=== PATIENT | female | born 1945 | race Caucasian/White ===

== ENCOUNTER 2016-10-18 10:40 | Outpatient (CLI) | payer MEDICARE ==
[2016-10-18 11:29] LABS: #Eosinphils 0.2 thou/uL (0.0-0.7); #Lymphocytes 2.9 thou/uL (1.20-3.40); #Monocytes 0.4 thou/uL (0.11-0.59); #Neutrophils 3.7 thou/uL (1.40-6.50); %Basophils 0.5 % (0.0-1.0); %Eosinophils 2.7 % (0.0-10.0); %Lymphocytes 40.3 % (21.0-51.0); %Monocytes 5.8 % (0.0-10.0); Hematocrit 37.8 % (36.0-47.0); Mean Platelet Volume 5.4 fL (7.4-10.4); Red Blood Cell (RBC) Count 4.37 mill/uL (4.20-5.40); White Blood Cell (WBC) Count 7.3 thou/uL (4.8-10.8)
[2016-10-18 11:48] LABS: ALT (SGPT) 13 U/L (0-55); AST (SGOT) 15 U/L (5-34); Alkaline Phosphatase 75 U/L (40-150); Anion Gap 16 mmol/L (10-20); BUN (Urea Nitrogen) 21 mg/dL (9.8-20.1); Bilirubin, Total 0.6 mg/dL (0.2-1.2); Calc. Creatinine Clearance 0 mL/min (70-130); Calcium 9.8 mg/dL (7.8-10.44); Carbon Dioxide 21 mmol/L (23-31); Chloride 105 mmol/L (98-107); Estimated GFR-MDRD 39; Globulin 3.2 g/dL (2.4-3.5); Protein, Total 7.5 g/dL (5.8-8.1)
[2016-10-18 12:15] LABS: Troponin I Less than 0.010 ng/mL (< 0.028)
== END 2016-10-18 10:41 | disposition home or self-care (01) ==
LOC: NAV LAB 10:40
PROVIDERS: ATTEND Family Medicine
DX: R53.83 Other fatigue (principal); R06.83 Snoring
CPT/HCPCS: 36415; 80053; 82306; 82607; 82728; 83880; 84443; 84484; 85025; 85379; 85652; 86038; 86430

== ENCOUNTER 2016-12-04 20:49 | Emergency (ER) | payer MEDICARE ==
[2016-12-04 21:25] LABS: #Basophils 0.1 thou/uL (0.0-0.2); #Eosinphils 0.1 thou/uL (0.0-0.7); #Lymphocytes 2.5 thou/uL (1.20-3.40); #Monocytes 0.3 thou/uL (0.11-0.59); #Neutrophils 3.2 thou/uL (1.40-6.50); %Basophils 1.4 % (0.0-1.0); %Eosinophils 2.4 % (0.0-10.0); %Lymphocytes 40.3 % (21.0-51.0); %Monocytes 5.3 % (0.0-10.0); Hematocrit 35.5 % (36.0-47.0); Mean Platelet Volume 6.3 fL (7.4-10.4); Red Blood Cell (RBC) Count 4.19 mill/uL (4.20-5.40); White Blood Cell (WBC) Count 6.2 thou/uL (4.8-10.8)
[2016-12-04 21:53] LABS: ALT (SGPT) 16 U/L (0-55); AST (SGOT) 17 U/L (5-34); Alkaline Phosphatase 73 U/L (40-150); Anion Gap 18 mmol/L (10-20); BUN (Urea Nitrogen) 26 mg/dL (9.8-20.1); Bilirubin, Total 0.6 mg/dL (0.2-1.2); Calc. Creatinine Clearance 0 mL/min (70-130); Calcium 10.3 mg/dL (7.8-10.44); Carbon Dioxide 23 mmol/L (23-31); Chloride 105 mmol/L (98-107); Estimated GFR-MDRD 41; Globulin 2.8 g/dL (2.4-3.5); Protein, Total 7.4 g/dL (5.8-8.1)
[2016-12-04 21:54] LABS: Troponin I Less than 0.010 ng/mL (< 0.028)
[2016-12-04] MEDS ORDERED: Sodium Chloride 0.9% 1,000 ML ONE (22:00)
--- NOTE | 2016-12-04 22:12 | CT ---
EXAM: NONCONTRAST HEAD CT 12/04/16 HISTORY: Stroke alert. Dizziness and hypertension. Mild right facial droop and right arm numbness. COMPARISON: None. TECHNIQUE: Noncontrast head CT is performed from skull base to skull vertex. FINDINGS: No parenchymal hemorrhage. No extra-axial hematoma. No midline shift. Basilar cisterns are patent. Brain volume, age appropriate. Cortical guajardo-white matter differentiation is preserved. Ventricles and sulci are patent and symmetric. Adequate aeration of the mastoid air cells. Left sphe noid sinus disease. Intact calvarium. IMPRESSION: 1. No acute intracranial process. 2. Results of the study discussed with Dr. Glaser, 12/04/16 at 9:14 p.m. Code CR POS: [facility]
[2016-12-04 22:36] LABS: Bilirubin Negative (Negative); Blood, Urine Negative (Negative); Glucose, Urine (Dipstick) Negative (Negative); Ketone, Urine Negative (Negative); Nitrite Negative (Negative); Protein, Urine (Dipstick) Negative (Neg-Trace); Urobilinogen 0.2 mg/dL (0.2-1.0)
[2016-12-04 22:44] LABS: RBC/HPF None Seen HPF (0-3); WBC/HPF 0-3 HPF (0-3)
[2016-12-04 22:45] LABS: Bacteria/HPF None Seen HPF (None Seen); Squamous Epithelial 0-3 HPF (0-3)
--- NOTE | 2016-12-05 07:55 | CT ---
EXAM: CT ANGIOGRAM OF THE [place] CT ANGIOGRAM OF THE NECK 12/04/16 HISTORY: Stroke-like symptoms. Facial numbness and upper extremity weakness. COMPARISON: None. TECHNIQUE: CT angiogram of the [place] and cervical carotid and vertebral arteries performed in the ax ial plane. Sagittal and coronal three dimensional maximum intensity projection images are submitted for interpretation. FINDINGS: The visualized brain parenchyma is unremarkable. Cortical guajardo-white matter differentiation appears to be preserved. Limited evaluation for subarachnoid hemorrhage due to the presence of intra-arteria l contrast. . Incidental left sphenoid sinus disease is noted. The visualized globes are intact. Evaluation of the oral cavity is limited by dental amalgam artifact. Midline fatty raphae of the ton tang appears to be preserved. Epiglottis has a normal caliber. Pre-epiglottic fat is preserved. No pr evertebral soft tissue swelling. Symmetric attenuation of the parotid glands and submandibular. Thyroid gland is unremarkable. No evidence of lymphadenopathy by size criteria. Symmetric attenuation of the sternocleidomastoid mu scles. Cervical vertebral body height is maintained. There is no fracture. There is anterolisthesis of C4 upon C5 and C5 upon C6, likely on the basis of degenerative change. Limited evaluation of the contents of the central spinal canal and neural foramina are due to technique. Upper mediastinum is unremarkable. Nonspecific ground glass opacities in the visualized lung apices. CT ANGIOGRAM OF THE NECK: There is appropriate enhancement and luminal diameter of the visualized aortic arch. RIGHT CAROTID: The innominate artery origin has appropriate enhancement and luminal diameter. The right common islas tid artery, carotid bifurcation and internal carotid artery have appropriate enhancement and luminal diameter. LEFT CAROTID: There is appropriate enhancement and luminal diameter of the carotid artery origin. The common carot id artery, carotid bifurcation, and internal carotid artery have appropriate enhancement and luminal diameter. Both vertebral artery origins are unremarkable. Vertebral arteries are essentially codominant and pa tent throughout their course in the neck. The visualized subclavian arteries are unremarkable. CT ANGIOGRAM OF THE [place]: Limited evaluation of the intracranial arteries due to poor contrast opacification secondary to bolu s. The intracranial internal carotid arteries appear to be grossly symmetric. Anterior circulation is slightly limited in evaluation due to suboptimal contrast opacification. No gross filling defects. There appears to be symmetric caliber of the A1 and M1 segments. Proximal A2 segments and MCA branches are grossly unremarkable. Posterior circulation demonstrates codominant vertebral arteries. Neither PICA artery origin is adeq uately assessed. Basilar artery is patent. Both P1 segments are grossly unremarkable IMPRESSION: 1. No significant stenosis or the carotid arteries, based on NASCET criteria. 2. Suboptimal evaluation of the [place]. No gross filling defect is appreciated. POS: [facility]
== END 2016-12-04 23:49 | disposition short-term general hospital (02) ==
LOC: NAV ERS 20:49
DX: R42 Dizziness and giddiness (principal); R20.0 Anesthesia of skin; R25.1 Tremor, unspecified; J45.909 Unspecified asthma, uncomplicated; Z79.899 Other long term (current) drug therapy
CPT/HCPCS: 36416; 70450; 70496; 70498; 80053; 81003; 81015; 82553; 84484; 85025; 93005; 96360; J7050

== ENCOUNTER 2017-02-26 13:23 | Outpatient (CLI) | payer MEDICARE ==
--- NOTE | 2017-02-26 14:05 | RAD ---
LUMBAR SPINE THREE VIEWS: History: 71-year-old female with back pain. FINDINGS: Post op laminectomy and pedicle screw placement changes noted at L4, L3 and L2 with extensive disc o steophytosis and disc space narrowing including the L1-2 disc. Prominent levoscoliosis. Post op righ t total hip replacement. IMPRESSION: Levoscoliosis. Pedicle screw placement changes at L2, L3, and L4 with narrowing of L1-2 and disc ost eophytosis. POS: [facility]
== END 2017-02-26 13:24 | disposition home or self-care (01) ==
LOC: NAV RAD 13:23
PROVIDERS: ATTEND Family Medicine
DX: M54.9 Dorsalgia, unspecified (principal); M41.86 Other forms of scoliosis, lumbar region; M48.06 Spinal stenosis, lumbar region; M25.78 Osteophyte, vertebrae
CPT/HCPCS: 72100

== ENCOUNTER 2017-10-01 10:42 | Outpatient (CLI) | payer MEDICARE ==
--- NOTE | 2017-10-01 11:35 | RAD ---
PA AND LATERAL CHEST: History: Cough. FINDINGS: Comparison is made with exam of 12-05-16. The heart size is normal. The lungs are expanded without focal areas of consolidation, pneumothorax, or pleural effusions. There are mild degenerative changes of the spine. IMPRESSION: No radiographic evidence of acute cardiopulmonary process. POS: [facility]
== END 2017-10-01 10:43 | disposition home or self-care (01) ==
LOC: NAV RAD 10:42
PROVIDERS: ATTEND Family Medicine
DX: R05 Cough (principal)
CPT/HCPCS: 71046

== ENCOUNTER 2018-08-04 15:20 | Outpatient (CLI) | payer MEDICARE ==
--- NOTE | 2018-08-04 17:07 | RAD ---
3 VIEWS RIGHT WRIST: Date: 08/04/18 COMPARISON: 07/26/18. HISTORY: Right wrist pain. FINDINGS: Three views of the right wrist show no evidence of acute fracture or dislocation. There is mild joint space narrowing of the radiocarpal joint. No focal soft tissue swelling is seen. Degenerative change s are seen in the first CMC joint. IMPRESSION: No evidence of acute osseous abnormality. POS: [facility]
== END 2018-08-04 15:21 | disposition home or self-care (01) ==
LOC: NAV RAD 15:20
PROVIDERS: ATTEND Family Medicine
DX: M25.531 Pain in right wrist (principal)

== ENCOUNTER 2018-10-08 14:12 | Outpatient (CLI) | payer MEDICARE ==
--- NOTE | 2018-10-08 14:58 | RAD ---
LEFT HIP THREE VIEWS: History: Hip pain. Comparison: 08-28-16 FINDINGS: Femoral head is normally maintained. There is mild degenerative spurring from the femoral head and mi ld spurring from the acetabulum. No fracture or acute abnormality. No significant change from prior e xam. IMPRESSION: Mild degenerative change left hip again noted. POS: [facility]
--- NOTE | 2018-10-08 15:24 | RAD ---
RIGHT HIP 2 VIEWS: HISTORY: Hip pain. FINDINGS: Right hip prosthesis is noted. The components appear in adequate position and alignment. No evidenc e of loosening. No fracture or acute abnormality. Small loose bodies adjacent to the proximal femur and hypertrophic changes from the proximal femur are noted, probably postop. No fracture or acute a bnormality. IMPRESSION: Right hip prosthesis is adequately aligned with no evidence for loosening. Hypertrophic changes as d escribed. POS: [facility]
== END 2018-10-08 14:13 | disposition home or self-care (01) ==
LOC: NAV RAD 14:12
PROVIDERS: ATTEND Family Medicine
DX: M25.552 Pain in left hip (principal); M25.551 Pain in right hip; M16.12 Unilateral primary osteoarthritis, left hip; Z96.641 Presence of right artificial hip joint

== ENCOUNTER 2019-02-11 15:13 | Outpatient (CLI) | payer MEDICARE ==
--- NOTE | 2019-02-11 15:46 | RAD ---
EXAM: Left knee 4 views: HISTORY: Left knee pain COMPARISON: None FINDINGS: Evidence for some increased density in the suprapatellar recess evidence for significant joint effusi on. Degenerative changes. No acute fracture or dislocation or other significant acute osseous abnormality. IMPRESSION: No significant acute process.
--- NOTE | 2019-02-11 15:51 | RAD ---
LUMBAR SPINE 3 VIEWS: History Low back pain. FINDINGS/IMPRESSION: There are multilevel degenerative changes seen with levoscoliosis of the lumbar spine. There are pos top changes of posterior spinal fusion with bilateral pedicle screws at L2, L3, and L4 levels in good position and alignment. No acute fracture or subluxation or bony destruction is seen. No hardware loosening is identified. There postop changes of right hip arthroplasty. POS: [facility]
--- NOTE | 2019-02-11 15:52 | RAD ---
EXAM: 3 views of the thoracic spine HISTORY: Thoracic spine pain COMPARISON: None FINDINGS: 3 views of the thoracic spine shows normal height and alignment of the vertebral bodies and intervertebral discs without fracture or subluxation. Small osteophytes are seen throughout the thoracic spine. Hardware is seen in the lumbar spine. 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
== END 2019-02-11 15:14 | disposition home or self-care (01) ==
LOC: NAV RAD 15:13
PROVIDERS: ATTEND Family Medicine
DX: M25.562 Pain in left knee (principal); M54.9 Dorsalgia, unspecified; M47.814 Spondylosis without myelopathy or radiculopathy, thoracic region; M47.816 Spondylosis without myelopathy or radiculopathy, lumbar region; M41.9 Scoliosis, unspecified; Z98.1 Arthrodesis status; Z96.641 Presence of right artificial hip joint
CPT/HCPCS: 72072; 72110

== ENCOUNTER 2019-07-08 19:05 | Emergency (ER) | payer MEDICARE ==
[2019-07-08] MEDS ORDERED: Acetaminophen 325 MG TAB ONE (19:27)
--- NOTE | 2019-07-08 20:02 | RAD ---
XR Chest Pa Lat STANDARD History: Fever Comparison: Radiograph 2018 Findings: Small sliding hiatal hernia. Mild atelectasis left lung base. No pneumothorax. No effusion. No confluent airspace consolidation. Incomplete evaluation of lumbar spine fixation hardware. Impression: Small sliding hiatal hernia as well as left basilar atelectasis.
[2019-07-08] MEDS ORDERED: Sodium Chloride 0.9% 1,000 ML ONE (20:14)
[2019-07-08 20:49] LABS: Anion Gap 17 mmol/L (10-20); BUN (Urea Nitrogen) 20 mg/dL (9.8-20.1); Calc. Creatinine Clearance 0 mL/min (70-130); Calcium 10.1 mg/dL (7.8-10.44); Carbon Dioxide 26 mmol/L (23-31); Chloride 98 mmol/L (98-107); Estimated GFR-MDRD 36; Glucose 115 mg/dL (83-110); Potassium 4.1 mmol/L (3.5-5.1); Sodium 137 mmol/L (136-145)
[2019-07-08 21:02] LABS: #Lymphocytes 1.2 thou/uL (1.20-3.40); #Monocytes 0.4 thou/uL (0.11-0.59); #Neutrophils 2.4 thou/uL (1.40-6.50); %Basophils 0.5 % (0.0-1.0); %Eosinophils 0.6 % (0.0-10.0); %Lymphocytes 28.4 % (21.0-51.0); %Monocytes 10.7 % (0.0-10.0); %Neutrophils 59.9 % (42.0-75.0); Mean Corpuscular HGB CONC 32.8 g/dL (32.0-36.0); Mean Corpuscular Hemoglobin 28.9 pg (27.0-31.0); Mean Platelet Volume 5.5 fL (7.4-10.4); Platelet Count 184 thou/uL (130-400); RBC Distribution Width 12.3 % (11.5-14.5); Red Blood Cell (RBC) Count 3.48 mill/uL (4.20-5.40)
[2019-07-08 21:25] LABS: Bilirubin Negative (Negative); Blood, Urine Negative (Negative); Clarity Clear (Clear); Glucose, Urine (Dipstick) Negative (Negative); Leukocyte Small (Negative); Nitrite Negative (Negative); Protein, Urine (Dipstick) Negative (Neg-Trace); Urobilinogen 0.2 mg/dL (Less than 2)
[2019-07-08 21:50] LABS: Bacteria/HPF 2+ HPF (None Seen); Renal Epithelial 0-3 HPF (None Seen); Squamous Epithelial 0-3 HPF (0-3); WBC/HPF 0-3 HPF (0-3)
== END 2019-07-08 21:55 | disposition home or self-care (01) ==
LOC: NAV ERS 19:05
DX: B34.9 Viral infection, unspecified (principal); D64.9 Anemia, unspecified; J45.909 Unspecified asthma, uncomplicated; Z79.899 Other long term (current) drug therapy
CPT/HCPCS: 71046; 80048; 81003; 81015; 83605; 85025; 87077; 87086; 87186; 87804; 96360; J7050

== ENCOUNTER 2019-10-18 16:58 | Emergency (ER) | payer MEDICARE | END 2019-10-18 17:45 | disposition home or self-care (01) | LOC: NAV ERS 16:58 | DX: S43.401A Unspecified sprain of right shoulder joint, initial encounter (principal); J45.909 Unspecified asthma, uncomplicated; Z86.711 Personal history of pulmonary embolism; Z79.899 Other long term (current) drug therapy; X50.1XXA Overexertion from prolonged static or awkward postures, initial encounter | CPT/HCPCS: 99283 ==

== ENCOUNTER 2019-11-29 15:39 | Outpatient (CLI) | payer MEDICARE ==
--- NOTE | 2019-11-29 17:04 | RAD ---
EXAM: Right knee 4 views: HISTORY: Acute right knee pain following injury from a fall COMPARISON: None FINDINGS: Minimal increased density in the suprapatellar recess, possible minimal joint effusion. Degenerative changes. No acute fracture or dislocation or other significant acute osseous abnormality. IMPRESSION: No significant acute process.
== END 2019-11-29 15:40 | disposition home or self-care (01) ==
LOC: NAV RAD 15:39
PROVIDERS: ATTEND Family Medicine
DX: M25.561 Pain in right knee (principal)

== ENCOUNTER 2020-02-03 17:37 | Emergency (ER) | payer MEDICARE ==
[2020-02-03 18:17] LABS: #Basophils 0.1 thou/uL (0.0-0.2); #Eosinphils 0.2 thou/uL (0.0-0.7); #Lymphocytes 2.6 thou/uL (1.20-3.40); #Monocytes 0.5 thou/uL (0.11-0.59); #Neutrophils 3.3 thou/uL (1.40-6.50); %Eosinophils 2.8 % (0.0-10.0); %Lymphocytes 38.6 % (21.0-51.0); %Monocytes 7.7 % (0.0-10.0); Hemoglobin 11.8 g/dL (12.0-16.0); Mean Corpuscular Hemoglobin 30.4 pg (27.0-31.0); Mean Corpuscular Volume 92.1 fL (78.0-98.0); Mean Platelet Volume 5.9 fL (7.4-10.4); Platelet Count 252 thou/uL (130-400); RBC Distribution Width 13.3 % (11.5-14.5); Red Blood Cell (RBC) Count 3.89 mill/uL (4.20-5.40); White Blood Cell (WBC) Count 6.6 thou/uL (4.8-10.8)
[2020-02-03 18:32] LABS: ALT (SGPT) 21 U/L (8-55); AST (SGOT) 18 U/L (5-34); Alkaline Phosphatase 69 U/L (40-110); Anion Gap 15 mmol/L (10-20); BUN (Urea Nitrogen) 17 mg/dL (9.8-20.1); Bilirubin, Total 0.4 mg/dL (0.2-1.2); Calc. Creatinine Clearance 0 mL/min (70-130); Calcium 9.2 mg/dL (7.8-10.44); Carbon Dioxide 19 mmol/L (23-31); Chloride 109 mmol/L (98-107); Estimated GFR-MDRD 51; Globulin 2.9 g/dL (2.4-3.5); Glucose 101 mg/dL (83-110); Potassium 4.3 mmol/L (3.5-5.1); Protein, Total 6.9 g/dL (6.0-8.3); Sodium 139 mmol/L (136-145)
[2020-02-03] MEDS ORDERED: Aspirin Chewable 81 MG TAB ONE (18:32)
--- NOTE | 2020-02-03 18:32 | RAD ---
RADIOGRAPH CHEST 1 VIEW: 02/03/20 HISTORY: 74-year-old female with chest pain. FINDINGS: There are no air space densities, pulmonary edema, pneumothorax, or cardiomegaly. The lateral costop hrenic angles are sharp. IMPRESSION: No acute cardiopulmonary findings. gonzales [] POS: [facility]
== END 2020-02-03 19:56 | disposition home or self-care (01) ==
LOC: NAV ERS 17:37
DX: R07.89 Other chest pain (principal); N18.3 Chronic kidney disease, stage 3 (moderate); J45.909 Unspecified asthma, uncomplicated; Z79.899 Other long term (current) drug therapy; Z86.711 Personal history of pulmonary embolism
CPT/HCPCS: 71045; 80053; 83880; 84484; 85025; 93005

== ENCOUNTER 2020-07-27 11:49 | Outpatient (CLI) | payer MEDICARE ==
--- NOTE | 2020-07-28 07:10 | RAD ---
XR Chest Pa Lat STANDARD HISTORY: Acute bronchitis COMPARISON: 02/13/2020, 07/08/2019 FINDINGS: The heart size is normal. The lungs are well expanded without focal areas of consolidation, pneumothorax or pleural effusions. IMPRESSION: No radiographic evidence of acute cardiopulmonary process.
== END 2020-07-27 11:50 | disposition home or self-care (01) ==
LOC: NAV RAD 11:49
PROVIDERS: ATTEND Family Medicine
DX: J20.9 Acute bronchitis, unspecified (principal)
CPT/HCPCS: 71046

== ENCOUNTER 2020-10-15 14:45 | Emergency (ER) | payer MEDICARE ==
[2020-10-15] MEDS ORDERED: Morphine 2 MG/ML SYRINGE ONE (15:03)
--- NOTE | 2020-10-15 15:21 | RAD ---
XR Knee Rt 4 View STANDARD History: Pain Comparison: Radiograph November 2019 Findings: Moderate medial compartment joint space narrowing. No acute fracture or malalignment. React valentina small joint effusion. Moderate tricompartmental osteophytes, greatest in the medial compartment. Impression: Tricompartmental drainage, greatest within the medial compartment. No acute osseous abnor mality.
== END 2020-10-15 15:33 | disposition home or self-care (01) ==
LOC: NAV ERS 14:45
DX: M25.561 Pain in right knee (principal); W18.30XA Fall on same level, unspecified, initial encounter
CPT/HCPCS: 96372; J2270

== ENCOUNTER 2022-01-01 21:28 | Emergency (ER) | payer MEDICARE ==
[2022-01-01] MEDS ORDERED: Boostrix 0.5 ML (Tdap) VIAL ONE (22:12)
== END 2022-01-01 22:44 | disposition home or self-care (01) ==
LOC: NAV ERS 21:28
DX: S61.211A Laceration without foreign body of left index finger without damage to nail, initial encounter (principal); Z23 Encounter for immunization; Z79.01 Long term (current) use of anticoagulants; Z79.899 Other long term (current) drug therapy; Z86.711 Personal history of pulmonary embolism; W26.0XXA Contact with knife, initial encounter; Y93.89 Activity, other specified
CPT/HCPCS: 12001; 90471; 90715

== ENCOUNTER 2022-01-07 11:05 | Observation (INO) | payer MEDICARE, OTHER ==
[2022-01-07 11:47] LABS: #Basophils 0.1 thou/uL (0.0-0.2); #Eosinphils 0.3 thou/uL (0.0-0.7); #Lymphocytes 2.2 thou/uL (1.20-3.40); #Monocytes 0.4 thou/uL (0.11-0.59); #Neutrophils 3.1 thou/uL (1.40-6.50); %Basophils 1.1 % (0.0-1.0); %Eosinophils 4.7 % (0.0-10.0); %Lymphocytes 36.3 % (21.0-51.0); %Monocytes 7.2 % (0.0-10.0); %Neutrophils 50.7 % (42.0-75.0); Hemoglobin 11.3 g/dL (12.0-16.0); Mean Corpuscular HGB CONC 29.8 g/dL (32.0-36.0); Mean Corpuscular Volume 90.4 fL (78.0-98.0); Mean Platelet Volume 6.2 fL (7.4-10.4); Platelet Count 265 thou/uL (130-400); RBC Distribution Width 12.9 % (11.5-14.5); Red Blood Cell (RBC) Count 4.19 mill/uL (4.20-5.40)
[2022-01-07 11:50] LABS: Prothrombin Time 12.9 sec (12.0-14.7)
[2022-01-07 11:54] LABS: Anion Gap 17 mmol/L (10-20); BUN (Urea Nitrogen) 28 mg/dL (9.8-20.1); Calc. Creatinine Clearance 0 mL/min (70-130); Calcium 9.9 mg/dL (7.8-10.44); Carbon Dioxide 18 mmol/L (23-31); Chloride 108 mmol/L (98-107); Glucose 117 mg/dL (83-110); Potassium 5.1 mmol/L (3.5-5.1); Sodium 138 mmol/L (136-145)
[2022-01-07] MEDS ORDERED: Acetaminophen 500 MG TAB ONE (12:14)
[2022-01-07 15:31] LABS: SARS-CoV-2 NAA Rapid Test Not Detected (NotDetected)
[2022-01-07 16:12] VITALS: BMI 24.0
[2022-01-07] MEDS ORDERED: HYDROmorphone 2 MG TAB PO PRN (17:53)
[2022-01-07] MEDS: Acetaminophen 500 MG TAB PO PRN (17:55)
[2022-01-07] MEDS: Gabapentin 300 MG CAP PO SCH (20:25)
[2022-01-07] MEDS ORDERED: traZODone HCl 50 MG TAB PO SCH (21:00)
[2022-01-07] MEDS ORDERED: Propranolol HCl 20 MG TAB PO SCH (21:45)
[2022-01-08] MEDS: Propranolol HCl 20 MG TAB PO SCH ×2 (08:48→14:43)
[2022-01-08] MEDS: Gabapentin 300 MG CAP PO SCH ×2 (08:48→14:42)
[2022-01-08] MEDS ORDERED: diphenhydrAMINE 25 MG CAP PO SCH (09:00)
[2022-01-08 11:44] VITALS: BP 165/70; TEMP 97
[2022-01-08] MEDS: Acetaminophen 500 MG TAB PO PRN (12:38)
== END 2022-01-08 15:25 | disposition home or self-care (01) ==
LOC: NAV ERS 11:05 → NAV ACUTE 15:42
PROVIDERS: ADMIT Family Medicine; ATTEND Family Medicine
DX: S06.9X9A Unspecified intracranial injury with loss of consciousness of unspecified duration, initial encounter (principal); S00.81XA Abrasion of other part of head, initial encounter; M25.531 Pain in right wrist; S60.211A Contusion of right wrist, initial encounter; I82.509 Chronic embolism and thrombosis of unspecified deep veins of unspecified lower extremity; I27.82 Chronic pulmonary embolism; G89.29 Other chronic pain; M54.9 Dorsalgia, unspecified; I25.10 Atherosclerotic heart disease of native coronary artery without angina pectoris; I12.9 Hypertensive chronic kidney disease with stage 1 through stage 4 chronic kidney disease, or unspecified chronic kidney disease; N18.30 Chronic kidney disease, stage 3 unspecified; M15.9 Polyosteoarthritis, unspecified; M47.812 Spondylosis without myelopathy or radiculopathy, cervical region; M48.02 Spinal stenosis, cervical region; E78.5 Hyperlipidemia, unspecified; G25.0 Essential tremor; Z86.73 Personal history of transient ischemic attack (TIA), and cerebral infarction without residual deficits; Z79.01 Long term (current) use of anticoagulants; Z79.899 Other long term (current) drug therapy; Z88.0 Allergy status to penicillin; Z88.2 Allergy status to sulfonamides; Z88.5 Allergy status to narcotic agent; Z88.6 Allergy status to analgesic agent; Z20.822 Contact with and (suspected) exposure to COVID-19; W18.30XA Fall on same level, unspecified, initial encounter; Y93.K9 Activity, other involving animal care
CPT/HCPCS: 70450; 72125; 80048; 85025; 85610; 85730; G0378; U0002

== ENCOUNTER 2022-02-07 18:05 | Emergency (ER) | payer MEDICARE ==
[2022-02-07 18:36] LABS: #Eosinphils 0.2 thou/uL (0.0-0.7); #Monocytes 0.6 thou/uL (0.11-0.59); #Neutrophils 3.2 thou/uL (1.40-6.50); %Basophils 0.6 % (0.0-1.0); %Lymphocytes 33.4 % (21.0-51.0); %Monocytes 9.7 % (0.0-10.0); %Neutrophils 53.3 % (42.0-75.0); Hemoglobin 12.4 g/dL (12.0-16.0); Mean Corpuscular HGB CONC 30.3 g/dL (32.0-36.0); Mean Corpuscular Hemoglobin 26.7 pg (27.0-31.0); Mean Corpuscular Volume 88.3 fL (78.0-98.0); Mean Platelet Volume 5.9 fL (7.4-10.4); Platelet Count 319 thou/uL (130-400); Red Blood Cell (RBC) Count 4.63 mill/uL (4.20-5.40); White Blood Cell (WBC) Count 6.1 thou/uL (4.8-10.8)
[2022-02-07] MEDS ORDERED: Dicyclomine 20 MG/2 ML VIAL ONE (18:48)
[2022-02-07 19:02] LABS: ALT (SGPT) 24 U/L (8-55); AST (SGOT) 23 U/L (5-34); Albumin 4.3 g/dL (3.4-4.8); Alkaline Phosphatase 92 U/L (40-110); Anion Gap 20 mmol/L (10-20); BUN (Urea Nitrogen) 19 mg/dL (9.8-20.1); Bilirubin, Total 0.8 mg/dL (0.2-1.2); Calc. Creatinine Clearance 0 mL/min (70-130); Calcium 9.8 mg/dL (7.8-10.44); Carbon Dioxide 18 mmol/L (23-31); Chloride 109 mmol/L (98-107); Globulin 3.5 g/dL (2.4-3.5); Glucose 103 mg/dL (83-110); Potassium 3.6 mmol/L (3.5-5.1); Protein, Total 7.8 g/dL (5.8-8.1); Sodium 143 mmol/L (136-145)
[2022-02-07] MEDS ORDERED: Sodium Chloride 0.9% 2,000 ML ONE (20:41)
== END 2022-02-07 21:52 | disposition home or self-care (01) ==
LOC: NAV ERS 18:05
DX: E86.0 Dehydration (principal); R19.7 Diarrhea, unspecified; J45.909 Unspecified asthma, uncomplicated; Z86.711 Personal history of pulmonary embolism; Z79.01 Long term (current) use of anticoagulants; Z79.899 Other long term (current) drug therapy
CPT/HCPCS: 80053; 82274; 85025; 87045; 87046; 87427; 87449; 96372; 99284; J0500; J7050

== ENCOUNTER 2022-09-25 11:39 | Outpatient (CLI) | payer MEDICARE | END 2022-09-25 11:40 | disposition home or self-care (01) | LOC: NAV RAD 11:39 | PROVIDERS: ATTEND Family Medicine | DX: M25.571 Pain in right ankle and joints of right foot (principal) ==

== ENCOUNTER 2022-10-10 16:14 | Emergency (ER) | payer MEDICARE ==
[~2022-10-10 16:14] MED LIST: Iopamidol 370 76% 100 ML VIAL ONE
[2022-10-10 17:16] LABS: #Eosinphils 0.2 thou/uL (0.0-0.7); #Lymphocytes 1.9 thou/uL (1.20-3.40); #Monocytes 0.5 thou/uL (0.11-0.59); #Neutrophils 3.3 thou/uL (1.40-6.50); %Basophils 0.7 % (0.0-1.0); %Eosinophils 3.7 % (0.0-10.0); %Lymphocytes 32.3 % (21.0-51.0); %Monocytes 7.5 % (0.0-10.0); %Neutrophils 55.8 % (42.0-75.0); Hemoglobin 11.6 g/dL (12.0-16.0); Mean Corpuscular HGB CONC 30.7 g/dL (32.0-36.0); Mean Corpuscular Hemoglobin 28.6 pg (27.0-31.0); Mean Corpuscular Volume 93.1 fl (78.0-98.0); Mean Platelet Volume 5.6 fL (7.4-10.4); Platelet Count 293 10x3/uL (130-400); RBC Distribution Width 13.6 % (11.5-14.5); Red Blood Cell (RBC) Count 4.06 mill/uL (4.20-5.40); White Blood Cell (WBC) Count 5.9 10x3/uL (4.8-10.8)
[2022-10-10 17:25] LABS: INR-International Normal Ratio 1.1; Prothrombin Time 14.4 sec (12.0-14.7)
[2022-10-10 17:26] LABS: PTT 29.7 sec (22.9-36.1)
[2022-10-10 17:29] LABS: D-Dimer Test 0.66 *mcg/mL (0.27-0.43)
[2022-10-10 17:32] LABS: Anion Gap 15 mmol/L (10-20); BUN (Urea Nitrogen) 25 mg/dL (9.8-20.1); Calc. Creatinine Clearance 0 mL/min (70-130); Calcium 9.8 mg/dL (7.8-10.44); Carbon Dioxide 22 mmol/L (23-31); Chloride 105 mmol/L (98-107); Estimated GFR 42; Glucose 85 mg/dL (83-110); Sodium 138 mmol/L (136-145)
[2022-10-10] MEDS ORDERED: Sodium Chloride 0.9% 1,000 ML ONE (18:25)
== END 2022-10-10 19:46 | disposition home or self-care (01) ==
LOC: NAV ERS 16:14
DX: S93.401A Sprain of unspecified ligament of right ankle, initial encounter (principal); N18.9 Chronic kidney disease, unspecified; J45.909 Unspecified asthma, uncomplicated; R07.81 Pleurodynia; X58.XXXA Exposure to other specified factors, initial encounter; Z79.01 Long term (current) use of anticoagulants
CPT/HCPCS: 36415; 71275; 80048; 85025; 85379; 85610; 85730; 93005; 96360; 96361; J7050; Q9967

== ENCOUNTER 2022-12-23 16:46 | Emergency (ER) | payer MEDICARE ==
[2022-12-23 17:12] LABS: #Eosinphils 0.2 thou/uL (0.0-0.7); #Monocytes 0.4 thou/uL (0.11-0.59); #Neutrophils 3.2 thou/uL (1.40-6.50); %Basophils 0.7 % (0.0-1.0); %Eosinophils 3.4 % (0.0-10.0); %Lymphocytes 34.9 % (21.0-51.0); %Monocytes 6.5 % (0.0-10.0); %Neutrophils 54.4 % (42.0-75.0); Hemoglobin 11.5 g/dL (12.0-16.0); Mean Corpuscular HGB CONC 31.1 g/dL (32.0-36.0); Mean Corpuscular Hemoglobin 28.2 pg (27.0-31.0); Mean Corpuscular Volume 90.6 fl (78.0-98.0); Mean Platelet Volume 5.6 fL (7.4-10.4); Platelet Count 283 10x3/uL (130-400); RBC Distribution Width 13.5 % (11.5-14.5); Red Blood Cell (RBC) Count 4.09 mill/uL (4.20-5.40); White Blood Cell (WBC) Count 5.8 10x3/uL (4.8-10.8)
[2022-12-23 17:33] LABS: ALT (SGPT) 21 U/L (8-55); AST (SGOT) 24 U/L (5-34); Albumin 4.4 g/dL (3.4-4.8); Alkaline Phosphatase 81 U/L (40-110); Anion Gap 19 mmol/L (10-20); BUN (Urea Nitrogen) 29 mg/dL (9.8-20.1); Bilirubin, Total 0.4 mg/dL (0.2-1.2); Calc. Creatinine Clearance 0 mL/min (70-130); Calcium 9.8 mg/dL (7.8-10.44); Carbon Dioxide 20 mmol/L (23-31); Chloride 106 mmol/L (98-107); Estimated GFR 28; Globulin 3.1 g/dL (2.4-3.5); Glucose 111 mg/dL (83-110); Lipase 33 U/L (8-78); Potassium 4.9 mmol/L (3.5-5.1); Protein, Total 7.5 g/dL (5.8-8.1); Sodium 140 mmol/L (136-145)
[2022-12-23] MEDS ORDERED: Pantoprazole 40 MG VIAL ONE (17:53)
[2022-12-23] MEDS ORDERED: Sodium Chloride 0.9% 1,000 ML ONE (17:53)
[2022-12-23] MEDS ORDERED: Nitroglycerin 2% Ointment 1 INCH/1 GM Packet ONE (17:53)
[2022-12-23] MEDS ORDERED: traZODone HCl 50 MG TAB ONE (20:32)
[2022-12-23] MEDS ORDERED: Apixaban 5 MG TAB PO SCH (20:45)
== END 2022-12-23 21:50 | disposition short-term general hospital (02) ==
LOC: NAV ERS 16:46
DX: R07.89 Other chest pain (principal); R93.1 Abnormal findings on diagnostic imaging of heart and coronary circulation
CPT/HCPCS: 36415; 71045; 80053; 83690; 84484; 85025; 85379; 93005; 94760; 96374; C9113; J7050

== ENCOUNTER 2024-06-03 15:54 | Outpatient (CLI) | payer MEDICARE | END 2024-06-03 15:55 | disposition home or self-care (01) | LOC: NAV RAD 15:54 | PROVIDERS: ATTEND Nurse Practitioner Family | DX: M25.552 Pain in left hip (principal); M16.12 Unilateral primary osteoarthritis, left hip ==